=== PATIENT | female | born 1960 | race Caucasian/White ===

== ENCOUNTER 2023-09-04 12:47 | Emergency (ER) | payer BC, OTHER ==
[~2023-09-04] VITALS: Ht 175.3 cm; Wt 70.3 kg
[2023-09-04 13:54] LABS: BASOPHILS # (AUTO) 0.02 K/uL (0.00-0.20); BASOPHILS % (AUTO) 0.3 % (0.0-5.0); EOSINOPHILS # (AUTO) 0.15 K/uL (0.00-0.70); EOSINOPHILS % (AUTO) 2.3 % (0.0-8.0); HEMATOCRIT 41.5 % (36-48); IMMATURE GRANULOCYTE ABSOLUTE 0.02 K/uL (0-1); LYMPHOCYTES # (AUTO) 2.1 K/uL (1.0-4.8); LYMPHOCYTES % (AUTO) 32.3 % (21.0-51.0); MEAN CORPUSCULAR HEMOGLOBIN 32.4 pg (27.0-33.0); MEAN CORPUSCULAR HGB CONC 34.5 g/dL (32.0-36.0); MEAN CORPUSCULAR VOLUME 94.1 fL (79-99); MONOCYTES # (AUTO) 0.5 K/uL (0.1-1.0); NEUTROPHILS # (AUTO) 3.7 K/uL (1.8-7.7); NEUTROPHILS % (AUTO) 57.8 % (40.0-77.0); PLATELET COUNT (AUTO) 221 K/uL (130-400); RED BLOOD CELL COUNT(AUTO) 4.41 MIL/uL (4.00-5.50); RED CELL DISTRIBUTION WIDTH 12.7 % (11.0-15.5); WHITE BLOOD COUNT (AUTO) 6.4 K/uL (4.8-10.8)
[2023-09-04] MEDS: PANTOPRAZOLE 40 MG/VIAL IVP ONE (13:55)
[2023-09-04 14:22] LABS: CREATININE 0.7 mg/dL (0.5-1.0); POTASSIUM 3.8 mmol/L (3.5-5.1)
[2023-09-04] MEDS ORDERED: PANT40TA55 PO (15:11)
[2023-09-04 15:15] VITALS: BP 131/77; PULSE 74; RESP 16; O2SAT 97
== END 2023-09-04 15:34 | disposition home or self-care (01) ==
LOC: EDH 12:47
DX: K21.9 Gastro-esophageal reflux disease without esophagitis (principal)
CPT/HCPCS: 99284; 96374; 71045; 83735; 84484; 80048; 85025; 36415; 93005; C9113